=== PATIENT | male | born 1980 | race Hispanic/Latino ===

== ENCOUNTER 2018-07-06 12:19 | Emergency (ER) | payer BC, SELFPAY ==
[~2018-07-06 12:19] MED LIST: ISOVUE-370 76%-LOCM 1 ML ONE
[2018-07-06 13:48] LABS: #Basophils 0.1 thou/uL (0.0-0.2); #Eosinphils 0.1 thou/uL (0.0-0.7); #Lymphocytes 2.4 thou/uL (1.20-3.40); #Monocytes 0.5 thou/uL (0.11-0.59); #Neutrophils 4.3 thou/uL (1.40-6.50); %Basophils 1.1 % (0.0-1.0); %Lymphocytes 32.7 % (21.0-51.0); %Monocytes 6.8 % (0.0-10.0); %Neutrophils 58.3 % (42.0-75.0); Hemoglobin 15.7 g/dL (14.0-18.0); Mean Corpuscular HGB CONC 35.7 g/dL (32.0-36.0); Mean Corpuscular Hemoglobin 31.9 pg (27.0-31.0); Mean Corpuscular Volume 89.4 fL (78.0-98.0); Mean Platelet Volume 8.6 fL (7.4-10.4); Platelet Count 195 thou/uL (130-400); RBC Distribution Width 11.4 % (11.5-14.5); Red Blood Cell (RBC) Count 4.92 mill/uL (4.70-6.10); White Blood Cell (WBC) Count 7.4 thou/uL (4.8-10.8)
[2018-07-06 13:54] LABS: CKMB 0.6 ng/mL (0-6.6); Troponin I Less than 0.010 ng/mL (< 0.028)
[2018-07-06 13:56] LABS: ALT (SGPT) 20 U/L (8-55); AST (SGOT) 20 U/L (5-34); Albumin 4.2 g/dL (3.5-5.0); Alkaline Phosphatase 85 U/L (40-150); Anion Gap 15 mmol/L (10-20); BUN (Urea Nitrogen) 12 mg/dL (8.9-20.6); Bilirubin, Total 0.8 mg/dL (0.2-1.2); CK (CPK) 51 U/L (30-200); Calc. Creatinine Clearance 0 mL/min (70-130); Calcium 9.9 mg/dL (7.8-10.44); Carbon Dioxide 22 mmol/L (22-29); Chloride 102 mmol/L (98-107); Estimated GFR-MDRD 84; Globulin 3.5 g/dL (2.4-3.5); Glucose 311 mg/dL (70-105); Potassium 4.1 mmol/L (3.5-5.1); Protein, Total 7.7 g/dL (6.0-8.3); Sodium 135 mmol/L (136-145)
--- NOTE | 2018-07-06 14:44 | RAD ---
CHEST 1 VIEW: Date: 07/06/18 HISTORY: Cough. COMPARISON: 05/24/09. FINDINGS: Normal cardiac silhouette. There are patchy opacities in the left mid lung, some of which have a some what more nodular appearance. Additional more interstitial opacity is noted in the right mid lung. IMPRESSION: Possible nodular opacities in the left mid lung. The largest nodule measures 2.2 cm. Better interroga tion with chest CT is recommended. CODE T. POS: CARRIE
--- NOTE | 2018-07-06 15:15 | CT ---
CT OF THE THORAX WITH IV CONTRAST: Date: 07/06/18 INDICATION: History of cough without fever. FINDINGS: There are peripherally based pulmonary nodules, the larger of these are cavitated. One of the largest is seen within the left upper lobe, measuring 2.1 cm. One of the largest in the right lower lobe bob sures 1.8 cm. There is a noncavitated peripheral pulmonary nodule within the left lower lobe measurin g 8.7 mm. No lymphadenopathy is evident. The visualized heart appears within normal limits. Visualized upper abdomen is unremarkable for acute abnormality. There is some healed rib deformity involving the anterolateral right 6th rib. There is scattered dege nerative and osteoarthritic change. IMPRESSION: 1. Cavitated pulmonary nodules within both lungs. Differential considerations include infectious ian ologies such as a fungal or mycobacterial infection. Alternatively, this can be seen with septic embo li. This can be seen with various vasculidities. Lymphoma or metastatic lesions are felt to be less l ikely. 2. Healed rib deformity involving the anterolateral right 6th rib. POS: CARRIE
[2018-07-06] MEDS ORDERED: Dexamethasone 10 MG/ML VIAL ONE (15:26)
--- NOTE | 2018-07-10 12:25 | EKG ---
Test Reason : ER Blood Pressure : / mmHG Vent. Rate : 099 BPM Atrial Rate : 099 BPM P-R Int : 130 ms QRS Dur : 078 ms QT Int : 332 ms P-R-T Axes : 030 -23 010 degrees QTc Int : 426 ms Normal sinus rhythm Normal ECG Confirmed by JEWEL KLEIN ([id number]), metropolitan editor NORMAN HERNANDEZ ([id number]) on 07/10/2018 12:24:40 PM Referred By: Confirmed By:JEWEL KLEIN
== END 2018-07-06 16:10 | disposition home or self-care (01) ==
LOC: ERS 12:19
DX: R06.02 Shortness of breath (principal); R05 Cough; E11.9 Type 2 diabetes mellitus without complications; E78.5 Hyperlipidemia, unspecified; I10 Essential (primary) hypertension
CPT/HCPCS: 36415; 71045; 71260; 80053; 82553; 84484; 85025; 93005; J1100

== ENCOUNTER 2019-03-01 09:02 | Outpatient (CLI) | payer OTHER ==
--- NOTE | 2019-03-01 09:28 | RAD ---
RIGHT ANKLE 2 VIEWS: HISTORY: Acute right ankle pain FINDINGS: The ankle mortise is maintained. No fracture, dislocation or bony destruction is seen.
--- NOTE | 2019-03-01 09:46 | RAD ---
EXAM: RIGHT FOOT THREE VIEWS: History: Right foot pain. FINDINGS/IMPRESSION: No fracture, dislocation, or other significant acute osseous abnormality. POS: C
== END 2019-03-01 09:03 | disposition home or self-care (01) ==
LOC: BICRAD 09:02
PROVIDERS: ATTEND Family Medicine
DX: M25.571 Pain in right ankle and joints of right foot (principal); M79.671 Pain in right foot
CPT/HCPCS: 36415; 80053; 84550; 85025; 86140

== ENCOUNTER 2020-05-23 10:30 | Outpatient (CLI) | payer OTHER ==
[2020-05-23] MEDS ORDERED: Iopamidol 300 61% 50 ML VIAL FS ONE (11:00)
[2020-05-23] MEDS ORDERED: Gadobenate Dimeglumine 529 MG/1 ML (20ML VIAL) ONE (11:00)
[2020-05-23] MEDS ORDERED: Lidocaine 1% PF 10 ML AMP ONE (11:00)
[2020-05-23] MEDS ORDERED: EPINEPHrine 1 MG/ML AMP ONE (11:00)
--- NOTE | 2020-05-23 13:29 | MRI ---
EXAM: MRI arthrogram right shoulder PROVIDED CLINICAL HISTORY: Shoulder pain COMPARISON: None FINDINGS: Evaluation is limited due to patient motion and patient inability to tolerate routine positioning. There is a small low-grade partial thickness undersurface tear involving the distal supraspinatus ten don at the footplate. Components of the rotator cuff appear otherwise intact. Postoperative changes of prior long head biceps tenodesis. No focal articular cartilage defect is sofy arent. There is a thickened and inhomogeneous appearance to the anterior-inferior glenoid labrum, suggesting sequela of prior, healed tear. There is no evidence for intrasubstance contrast or labral displacement. Osteophyte formation is noted arising from the inferior aspects of the humeral head. Acromioclavicular joint osteoarthrosis is demonstrated with mild mass effect upon the subjacent supra spinatus. There is diffuse increased signal intensity on fluid sensitive sequences involving the teres minor muscle suggesting denervation. There is no muscular volume loss. IMPRESSION: 1. Small low-grade partial thickness undersurface tear involving the distal supraspinatus tendon at t he footplate. 2. Diffuse muscle edema involving the teres minor suggesting denervation, as can be seen in the setti ng of quadrilateral space syndrome. 3. Other findings as above.
--- NOTE | 2020-05-23 13:48 | RAD ---
ARTHROGRAM RIGHT SHOULDER: DATE: 05/23/2020 HISTORY: 39-year-old male with right shoulder pain TECHNIQUE: Signed informed consent obtained. Anterior skin of shoulder prepared and draped in usual sterile fash ion. 25-gauge needle used to apply buffered lidocaine. Under brief, intermittent fluoroscopy, a 22-gauge spinal needle was advanced into the intracapsular space of the glenohumeral joint. A total o f12 mL of normal saline solution containing MultiHance gadolinium-based contrast agent, Isovue-300 iodinated contrast agent, lidocaine, and epinephrine, was injected. Needle was removed. Patient henry ated the procedure well. No complications. FINDINGS: Could distribution of contrast material in the subcapsular joint space. No obvious leakage of contrast material from the intracapsular glenohumeral joint space into the suba cromial-subdeltoid bursa. Focal 1.5 cm round lucency at surgical neck of the humerus with sclerotic margins. IMPRESSION: 1.) Successful shoulder arthrogram. 2.) see separate report of subsequent MRI arthrogram of shoulder.
== END 2020-05-23 10:31 | disposition home or self-care (01) ==
LOC: RAD 10:30
PROVIDERS: ATTEND Orthopaedic Surgery
DX: M25.511 Pain in right shoulder (principal); M75.111 Incomplete rotator cuff tear or rupture of right shoulder, not specified as traumatic; M19.011 Primary osteoarthritis, right shoulder; R60.0 Localized edema
CPT/HCPCS: 23350; A9577; J0171; J2001; Q9967

== ENCOUNTER 2020-10-01 11:51 | Emergency (ER) | payer BC ==
[2020-10-01 13:44] LABS: #Eosinphils 0.1 thou/uL (0.0-0.7); #Lymphocytes 2.2 thou/uL (1.20-3.40); #Neutrophils 4.2 thou/uL (1.40-6.50); %Basophils 0.7 % (0.0-1.0); %Eosinophils 1.6 % (0.0-10.0); %Lymphocytes 29.2 % (21.0-51.0); %Monocytes 13.1 % (0.0-10.0); %Neutrophils 55.4 % (42.0-75.0); Hemoglobin 17.5 g/dL (14.0-18.0); Mean Corpuscular HGB CONC 36.3 g/dL (32.0-36.0); Mean Corpuscular Hemoglobin 31.6 pg (27.0-31.0); Mean Corpuscular Volume 86.8 fL (78.0-98.0); Platelet Count 201 thou/uL (130-400); RBC Distribution Width 11.3 % (11.5-14.5); Red Blood Cell (RBC) Count 5.54 mill/uL (4.70-6.10); White Blood Cell (WBC) Count 7.5 thou/uL (4.8-10.8)
[2020-10-01 14:17] LABS: ALT (SGPT) 31 U/L (8-55); AST (SGOT) 38 U/L (5-34); Albumin 3.9 g/dL (3.5-5.0); Alkaline Phosphatase 59 U/L (40-110); Anion Gap 18 mmol/L (10-20); BUN (Urea Nitrogen) 20 mg/dL (8.9-20.6); Bilirubin, Total 0.7 mg/dL (0.2-1.2); Calc. Creatinine Clearance 0 mL/min (70-130); Calcium 9.6 mg/dL (7.8-10.44); Carbon Dioxide 23 mmol/L (22-29); Chloride 98 mmol/L (98-107); Globulin 4.4 g/dL (2.4-3.5); Glucose 364 mg/dL (70-105); Potassium 3.7 mmol/L (3.5-5.1); Protein, Total 8.3 g/dL (6.0-8.3); Sodium 135 mmol/L (136-145)
== END 2020-10-01 21:17 | disposition home or self-care (01) ==
LOC: ERS 11:51
DX: K85.90 Acute pancreatitis without necrosis or infection, unspecified (principal); R19.7 Diarrhea, unspecified; E11.9 Type 2 diabetes mellitus without complications; E78.5 Hyperlipidemia, unspecified; E78.00 Pure hypercholesterolemia, unspecified; I10 Essential (primary) hypertension; Z79.899 Other long term (current) drug therapy; Z79.84 Long term (current) use of oral hypoglycemic drugs
CPT/HCPCS: 36415; 36416; 80053; 82274; 83690; 85025; 87324; 87328; 87329; 87449; 99284

== ENCOUNTER 2022-10-06 20:37 | Emergency (ER) | payer BC ==
[~2022-10-06 20:37] MED LIST changes: -ISOVUE-370 76%-LOCM 1 ML ONE; +Iopamidol-370 76% 500 ML 1 ML ONE
[2022-10-06 22:45] LABS: #Basophils 0.1 thou/uL (0.0-0.2); #Eosinphils 0.2 thou/uL (0.0-0.7); #Lymphocytes 3.3 thou/uL (1.20-3.40); #Monocytes 0.6 thou/uL (0.11-0.59); #Neutrophils 3.3 thou/uL (1.40-6.50); %Basophils 1.3 % (0.0-1.0); %Eosinophils 2.7 % (0.0-10.0); %Lymphocytes 43.5 % (21.0-51.0); %Monocytes 8.2 % (0.0-10.0); %Neutrophils 44.3 % (42.0-75.0); Hemoglobin 14.4 g/dL (14.0-18.0); Mean Corpuscular HGB CONC 35.4 g/dL (32.0-36.0); Mean Corpuscular Hemoglobin 32.4 pg (27.0-31.0); Mean Corpuscular Volume 91.6 fl (78.0-98.0); Mean Platelet Volume 8.8 fL (7.4-10.4); Platelet Count 167 10x3/uL (130-400); RBC Distribution Width 11.5 % (11.5-14.5); Red Blood Cell (RBC) Count 4.44 mill/uL (4.70-6.10); White Blood Cell (WBC) Count 7.5 10x3/uL (4.8-10.8)
[2022-10-06 23:01] LABS: ALT (SGPT) 26 U/L (8-55); AST (SGOT) 17 U/L (5-34); Alkaline Phosphatase 75 U/L (40-110); Anion Gap 16 mmol/L (10-20); BUN (Urea Nitrogen) 11 mg/dL (8.9-20.6); Bilirubin, Total 0.5 mg/dL (0.2-1.2); Calc. Creatinine Clearance 0 mL/min (70-130); Calcium 9.1 mg/dL (7.8-10.44); Carbon Dioxide 25 mmol/L (22-29); Chloride 103 mmol/L (98-107); Estimated GFR 102; Globulin 2.6 g/dL (2.4-3.5); Glucose 292 mg/dL (70-105); Lipase 83 U/L (8-78); Potassium 4.1 mmol/L (3.5-5.1); Protein, Total 6.6 g/dL (6.0-8.3); Sodium 140 mmol/L (136-145)
[2022-10-06] MEDS ORDERED: Ketorolac Tromethamine 30 MG/ML VIAL ONE (23:11)
[2022-10-07 00:39] LABS: Bilirubin Negative (Negative); Blood, Urine Negative (Negative); Clarity Clear (Clear); Glucose, Urine (Dipstick) Greater than 1000 mg/dL (Negative); Ketone, Urine 20 mg/dL (Negative); Leukocyte Negative Leu/uL (Negative); Nitrite Negative (Negative); Protein, Urine (Dipstick) Negative (Neg-Trace); Specific Gravity, Urine 1.023 (1.002-1.036); Urobilinogen Normal mg/dL (Less than 2)
== END 2022-10-07 01:21 | disposition home or self-care (01) ==
LOC: ERS 20:37
DX: K76.0 Fatty (change of) liver, not elsewhere classified (principal); E11.9 Type 2 diabetes mellitus without complications; E78.5 Hyperlipidemia, unspecified; E78.00 Pure hypercholesterolemia, unspecified; I10 Essential (primary) hypertension; Z79.84 Long term (current) use of oral hypoglycemic drugs; Z79.899 Other long term (current) drug therapy; Z00.00 Encounter for general adult medical examination without abnormal findings; E11.65 Type 2 diabetes mellitus with hyperglycemia
CPT/HCPCS: 36415; 74177; 80053; 80061; 81001; 81003; 82043; 83036; 83690; 84443; 85025; 96374; J1885; Q9967

== ENCOUNTER 2022-12-11 15:18 | Emergency (ER) | payer BC ==
[2022-12-11 16:05] LABS: #Basophils 0.1 thou/uL (0.0-0.2); #Eosinphils 0.1 thou/uL (0.0-0.7); #Lymphocytes 3.2 thou/uL (1.20-3.40); #Monocytes 0.6 thou/uL (0.11-0.59); #Neutrophils 2.6 thou/uL (1.40-6.50); %Basophils 1.1 % (0.0-1.0); %Eosinophils 2.2 % (0.0-10.0); %Lymphocytes 48.1 % (21.0-51.0); %Monocytes 9.6 % (0.0-10.0); %Neutrophils 39.1 % (42.0-75.0); Hemoglobin 14.3 g/dL (14.0-18.0); Mean Corpuscular HGB CONC 36.2 g/dL (32.0-36.0); Mean Corpuscular Hemoglobin 32.9 pg (27.0-31.0); Mean Corpuscular Volume 90.9 fl (78.0-98.0); Mean Platelet Volume 8.2 fL (7.4-10.4); Platelet Count 194 10x3/uL (130-400); RBC Distribution Width 11.4 % (11.5-14.5); Red Blood Cell (RBC) Count 4.33 mill/uL (4.70-6.10); White Blood Cell (WBC) Count 6.6 10x3/uL (4.8-10.8)
[2022-12-11 16:29] LABS: ALT (SGPT) 26 U/L (8-55); AST (SGOT) 19 U/L (5-34); Alkaline Phosphatase 62 U/L (40-110); Anion Gap 14 mmol/L (10-20); BUN (Urea Nitrogen) 12 mg/dL (8.9-20.6); Bilirubin, Total 0.6 mg/dL (0.2-1.2); CK (CPK) 42 U/L (30-200); Calc. Creatinine Clearance 0 mL/min (70-130); Calcium 8.9 mg/dL (7.8-10.44); Carbon Dioxide 21 mmol/L (22-29); Chloride 109 mmol/L (98-107); Estimated GFR 107; Globulin 2.7 g/dL (2.4-3.5); Glucose 125 mg/dL (70-105); Lipase 46 U/L (8-78); Potassium 3.6 mmol/L (3.5-5.1); Protein, Total 6.7 g/dL (6.0-8.3); Sodium 140 mmol/L (136-145)
== END 2022-12-11 17:58 | disposition home or self-care (01) ==
LOC: ERS 15:18
DX: E86.0 Dehydration (principal); R19.7 Diarrhea, unspecified; E11.9 Type 2 diabetes mellitus without complications; E78.00 Pure hypercholesterolemia, unspecified; I10 Essential (primary) hypertension; Z79.899 Other long term (current) drug therapy; Z79.84 Long term (current) use of oral hypoglycemic drugs
CPT/HCPCS: 36415; 80053; 82550; 83690; 85025; 87324; 87328; 87329; 87449; 96360; 96361